=== PATIENT | male | born 1985 | race African-American/Black ===

== ENCOUNTER 2019-08-28 16:25 | Emergency (ER) | payer OTHER ==
[~2019-08-28] VITALS: Ht 180.3 cm; Wt 72.6 kg
[2019-08-28 16:50] VITALS: BP 127/66
--- NOTE | 2019-08-28 16:52 | NUR ---
TO LOBBY A/W BED AMBULATORY
--- NOTE | 2019-08-28 19:38 | NUR ---
PT AMBULATED TO BED #2
--- NOTE | 2019-08-28 19:42 | NUR ---
34 Y/O MALE PRESENTS TO ED, C/O ERECTILE DYSFUNCTION. PT STATES HAVING SYMPTOM FOR PAST 3 MONTHS. PT HAS USED VIAGRA AND CIALIS PREVIOUSLY, STATES HAVING LITTLE EFFECT. PT DENIES ANY BURNING SENSATION URINATING. NO TRAUMA TO GENITALS. PT STABLE. ERMD AWARE. WILL CONTINUE TO MONITOR.
[2019-08-28 20:46] VITALS: BP 127/66
--- NOTE | 2019-08-28 20:47 | NUR ---
Patient discharged with v/s stable. Written and verbal after care instructions given and explained. Patient verbalized understanding. Ambulatory with steady gait. All questions addressed prior to discharge. Advised to follow up with PODIATRY, REFERRALS PROVIDED.
== END 2019-08-28 20:47 | disposition home or self-care (01) ==
LOC: MED 16:25
DX: N52.9 Male erectile dysfunction, unspecified (principal); B35.3 Tinea pedis; J45.909 Unspecified asthma, uncomplicated; Z88.2 Allergy status to sulfonamides
CPT/HCPCS: 99281

== ENCOUNTER 2021-02-22 13:49 | Emergency (ER) | payer OTHER ==
[~2021-02-22] VITALS: Ht 172.7 cm; Wt 68.5 kg
[2021-02-22 13:56] VITALS: BP 122/84
[2021-02-22] MEDS ORDERED: IBUP-1842 PO (14:08)
[2021-02-22 14:31] VITALS: BP 122/84
== END 2021-02-22 14:32 | disposition home or self-care (01) ==
LOC: MED 13:49
DX: L84 Corns and callosities (principal); J45.909 Unspecified asthma, uncomplicated; Z79.899 Other long term (current) drug therapy; Z79.82 Long term (current) use of aspirin; Z88.2 Allergy status to sulfonamides
CPT/HCPCS: 99282